=== PATIENT | male | born 1980 | race Caucasian/White ===

== ENCOUNTER 2018-09-20 14:00 | Emergency (ER) | payer MEDICAID, SELFPAY ==
[~2018-09-20] VITALS: Ht 160 cm; Wt 63.6 kg
[~2018-09-20 14:00] MED LIST: NOCURR
[2018-09-20] MEDS ORDERED: LIDOCAINE 1% 10 ML VIAL INJ ONE (18:00)
[2018-09-20] MEDS ORDERED: BACITRACIN 0.9 GM PACKET OINTMENT TP ONE (19:15)
[2018-09-20 19:48] VITALS: BP 132/77
== END 2018-09-20 20:15 | disposition home or self-care (01) ==
LOC: EMS 14:01
DX: S01.81XA Laceration without foreign body of other part of head, initial encounter (principal); S01.111A Laceration without foreign body of right eyelid and periocular area, initial encounter; F12.90 Cannabis use, unspecified, uncomplicated; F15.90 Other stimulant use, unspecified, uncomplicated; F17.210 Nicotine dependence, cigarettes, uncomplicated; W01.119A Fall on same level from slipping, tripping and stumbling with subsequent striking against unspecified sharp object, initial encounter; Y93.89 Activity, other specified; Y92.89 Other specified places as the place of occurrence of the external cause; Y99.8 Other external cause status
CPT/HCPCS: 12014; 36415; 70450; 72125; 99284; G0480; J3490; 12013

== ENCOUNTER 2018-10-13 20:23 | Emergency (ER) | payer MEDICAID ==
[~2018-10-13] VITALS: Ht 160 cm; Wt 59.1 kg
[2018-10-13 21:29] VITALS: BP 123/68
== END 2018-10-13 21:57 | disposition home or self-care (01) ==
LOC: EMS 20:24
DX: S01.111D Laceration without foreign body of right eyelid and periocular area, subsequent encounter (principal); S01.81XD Laceration without foreign body of other part of head, subsequent encounter; R03.0 Elevated blood-pressure reading, without diagnosis of hypertension; F15.90 Other stimulant use, unspecified, uncomplicated; F12.90 Cannabis use, unspecified, uncomplicated; F17.210 Nicotine dependence, cigarettes, uncomplicated; Z48.02 Encounter for removal of sutures; X58.XXXD Exposure to other specified factors, subsequent encounter

== ENCOUNTER 2022-01-14 05:04 | Inpatient (IN) | payer MEDICAID ==
[~2022-01-14] VITALS: Ht 162.6 cm; Wt 59.6 kg
[2022-01-14 06:06] LABS: BASOPHILS % (AUTO) 0.5 % (0.0-2.0); EOSINOPHILS % (AUTO) 1.6 % (1.0-6.0); HEMATOCRIT 37.9 % (41-53); HEMOGLOBIN 12.7 g/dL (13.5-17.5); LYMPHOCYTES # (AUTO) 1.6 K/uL (1.0-4.8); LYMPHOCYTES % (AUTO) 12.9 % (22.0-44.0); MEAN CORPUSCULAR HEMOGLOBIN 30.8 pg (26.0-34.0); MEAN CORPUSCULAR HGB CONC 33.4 G/dL (31.0-37.0); MEAN CORPUSCULAR VOLUME 92 fL (80-100); MONOCYTES % (AUTO) 7.6 % (2.0-9.0); NEUTROPHILS # (AUTO) 9.6 K/uL (1.8-7.7); NEUTROPHILS % (AUTO) 77.4 % (40.0-70.0); PLATELET COUNT (AUTO) 247 K/uL (150-450); RED BLOOD CELL COUNT(AUTO) 4.11 MIL/uL (4.50-5.90); RED CELL DISTRIBUTION WIDTH 13.2 % (11.5-14.5)
[2022-01-14 06:14] LABS: PROTHROMBIN TIME 10.9 SEC (9.4-11.6)
[2022-01-14] MEDS ORDERED: VANCOMYCIN HCL 1.25 GM in DEXTROSE 5%-WATER 250 ML IV ONE (06:15)
[2022-01-14] MEDS ORDERED: CefTRIAXone 1 GM/DEXTROSE 50 ML IV ONE (06:15)
[2022-01-14 06:25] LABS: ALANINE AMINOTRANSFERASE 17 U/L (12-78); ALBUMIN 3.5 g/dL (3.4-5.0); ALKALINE PHOSPHATASE 73 U/L (46-116); ANION GAP 9 mmol/L (8-16); ASPARTATE AMINOTRANSFERASE 18 U/L (15-37); BILIRUBIN,TOTAL 0.4 mg/dL (0.1-1.0); CALCIUM, TOTAL 8.4 mg/dL (8.8-10.5); CARBON DIOXIDE 24 mmol/L (22-29); CHLORIDE 102 mmol/L (98-107); CREATININE 0.65 mg/dL (0.60-1.30); GLUCOSE,RANDOM 114 mg/dL (70-110); POTASSIUM 3.1 mmol/L (3.5-5.1); SODIUM SERUM 135 mmol/L (136-145); TOTAL PROTEIN, SERUM 7.6 g/dL (6.4-8.2); UREA NITROGEN, BLOOD 11 mg/dL (7-18)
[2022-01-14 06:28] LABS: GLOMERULAR FILTR. RATE CALC > 60 mL/min (>60)
[2022-01-14] MEDS ORDERED: PERTUSS(ACELL),DIPH,TET VAC/PF 0.5 ML SYRINGE IM. ONE (06:30)
[2022-01-14] MEDS ORDERED: MORPHINE SULFATE 2 MG/ML SYRINGE IVP ONE (06:30)
[2022-01-14 06:40] LABS: C-REACTIVE PROTEIN QUANT 6.94 mg/dL (0.00-0.30)
[2022-01-14] MEDS ORDERED: SODIUM CHLORIDE 0.9% 1,000 ML IV ONE (06:45)
[2022-01-14 07:23] LABS: COVID AG,FIA SOURCE NASOPHARYNGEAL
[2022-01-14] MEDS ORDERED: ONDANSETRON HCL 4 MG/2 ML VIAL IVP PRN ×2 (08:15→23:00)
[2022-01-14] MEDS ORDERED: ACETAMINOPHEN 325 MG TABLET PO PRN ×2 (08:15→23:00)
[2022-01-14] MEDS ORDERED: 0.9% SODIUM CHLORIDE 10 ML SYRINGE IVP PRN (08:15)
[2022-01-14] MEDS ORDERED: GADOTERATE MEGLUMINE 10 MMOL/20 ML VIAL IVP ONE (08:38)
[2022-01-14 11:53] VITALS: BP 122/87
[2022-01-14 15:27] VITALS: BP 116/75
[2022-01-14] MEDS ORDERED: POTASSIUM CHLORIDE 20 MEQ ER TABLET PO PRN (16:00)
[2022-01-14] MEDS ORDERED: POTASSIUM CHL 10 MEQ/WATER 50 ML IV PRN (16:00)
[2022-01-14 20:07] VITALS: BP 117/75
[2022-01-14] MEDS ORDERED: HYDROCODONE/ACETAMINOPHEN 5-325 MG TABLET PO PRN ×3 (20:45→23:00)
[2022-01-14] MEDS ORDERED: MAGNESIUM HYDROXIDE SUSPENSION 30 ML UDCUP PO PRN (23:00)
[2022-01-14] MEDS ORDERED: ZOLPIDEM TARTRATE 5 MG TABLET PO PRN (23:00)
[2022-01-14] MEDS ORDERED: BISACODYL 10 MG RECTAL RECTAL SUPPOSITORY PR PRN (23:00)
[2022-01-14] MEDS ORDERED: ALBUTEROL SULFATE 2.5 MG/0.5 ML NEB SOLUTION NEB PRN (23:00)
[2022-01-14] MEDS ORDERED: IPRATROPIUM BROMIDE 0.5 MG/2.5 ML NEB SOLUTION NEB PRN (23:00)
[2022-01-14] MEDS ORDERED: MORPHINE SULFATE 2 MG/ML SYRINGE IVP PRN (23:00)
[2022-01-14] MEDS: HEPARIN SODIUM,PORCINE 5,000 UNITS/ML VIAL SQ SCH (23:57)
[2022-01-15] MEDS ORDERED: VANCOMYCIN HCL 1.25 GM in DEXTROSE 5%-WATER 250 ML IV SCH ×2
[2022-01-15 00:48] VITALS: BP 117/75
[2022-01-15 04:16] VITALS: BP 126/77
[2022-01-15] MEDS ORDERED: SODIUM CHLORIDE 0.9% 500 ML IV ONE (04:51)
[2022-01-15] MEDS ORDERED: RINGERS SOLUTION,LACTATED 1,000 ML IV ONE (06:00)
[2022-01-15] MEDS ORDERED: VANCOMYCIN HCL 1 GM/VIAL ONE (06:56)
[2022-01-15] MEDS ORDERED: LIDOCAINE 1%/EPI 1:200,000/PF 30 ML VIAL ONE (06:57)
[2022-01-15] MEDS ORDERED: SODIUM CL IRRIG SOLN BAG 3,000 ML IRRIG ONE (06:57)
[2022-01-15] MEDS ORDERED: BUPIVACAINE HCL/PF 0.25% 30 ML VIAL ONE (06:58)
[2022-01-15] MEDS ORDERED: SODIUM CHLORIDE 0.9% 0 ML ONE (06:59)
[2022-01-15 07:20] LABS: BASOPHILS % (AUTO) 0.5 % (0.0-2.0); EOSINOPHILS % (AUTO) 1.7 % (1.0-6.0); HEMATOCRIT 40.7 % (41-53); HEMOGLOBIN 13.2 g/dL (13.5-17.5); LYMPHOCYTES # (AUTO) 1.8 K/uL (1.0-4.8); LYMPHOCYTES % (AUTO) 14.3 % (22.0-44.0); MEAN CORPUSCULAR HEMOGLOBIN 30.9 pg (26.0-34.0); MEAN CORPUSCULAR HGB CONC 32.5 G/dL (31.0-37.0); MEAN CORPUSCULAR VOLUME 95 fL (80-100); MONOCYTES % (AUTO) 7.7 % (2.0-9.0); NEUTROPHILS # (AUTO) 9.4 K/uL (1.8-7.7); NEUTROPHILS % (AUTO) 75.8 % (40.0-70.0); PLATELET COUNT (AUTO) 253 K/uL (150-450); RED BLOOD CELL COUNT(AUTO) 4.29 MIL/uL (4.50-5.90); RED CELL DISTRIBUTION WIDTH 13.1 % (11.5-14.5)
[2022-01-15 07:37] LABS: ALANINE AMINOTRANSFERASE 17 U/L (12-78); ALBUMIN 3.4 g/dL (3.4-5.0); ALKALINE PHOSPHATASE 73 U/L (46-116); ANION GAP 5 mmol/L (8-16); ASPARTATE AMINOTRANSFERASE 17 U/L (15-37); BILIRUBIN,TOTAL 0.3 mg/dL (0.1-1.0); CARBON DIOXIDE 28 mmol/L (22-29); CHLORIDE 101 mmol/L (98-107); GLUCOSE,RANDOM 99 mg/dL (70-110); POTASSIUM 4.5 mmol/L (3.5-5.1); SODIUM SERUM 134 mmol/L (136-145); TOTAL PROTEIN, SERUM 7.7 g/dL (6.4-8.2); UREA NITROGEN, BLOOD 9 mg/dL (7-18)
[2022-01-15 07:38] LABS: GLOMERULAR FILTR. RATE CALC > 60 mL/min (>60)
[2022-01-15] MEDS ORDERED: MEPERIDINE-PF 25 MG/ML VIAL IVP PRN (08:00)
[2022-01-15] MEDS ORDERED: FentaNYL CITRATE PF 100 MCG/2 ML VIAL IVP PRN (08:00)
[2022-01-15] MEDS: HEPARIN SODIUM,PORCINE 5,000 UNITS/ML VIAL SQ SCH ×3 (08:00→23:25)
[2022-01-15] MEDS: OXYGEN THERAPY IH SCH ×2 (08:00→20:18)
[2022-01-15] MEDS ORDERED: HYDROmorphone 2 MG/ML VIAL IVP PRN (08:00)
[2022-01-15] MEDS ORDERED: BACITRACIN 28 GM OINTMENT TP ONE (08:08)
[2022-01-15] MEDS: VANCOMYCIN 1GM/WATER(PEG/NADA) 200 ML IV SCH ×3 (08:23→23:25)
[2022-01-15] MEDS: CefTRIAXone 1 GM/DEXTROSE 50 ML IV SCH (08:23)
[2022-01-15] MEDS: DOCUSATE SODIUM 100 MG CAPSULE PO SCH ×2 (09:11→20:18)
[2022-01-15] MEDS: PANTOPRAZOLE SODIUM 40 MG/VIAL IVP SCH (09:11)
[2022-01-15 10:16] VITALS: BP 135/60
[2022-01-15] MEDS ORDERED: MIDAZOLAM HCL 2 MG/2 ML VIAL IVP ONE (12:00)
[2022-01-15] MEDS ORDERED: DEXAMETHASONE SOD PHOS 4 MG/ML VIAL IVP ONE (12:00)
[2022-01-15] MEDS ORDERED: FentaNYL CITRATE PF 100 MCG/2 ML VIAL IVP ONE (12:00)
[2022-01-15] MEDS ORDERED: METOPROLOL TARTRATE 5 MG/5 ML VIAL IVP ONE (12:00)
[2022-01-15] MEDS ORDERED: SUCCINYLCHOLINE CHLORIDE 20 MG/ML 10 ML VIAL IVP ONE (12:00)
[2022-01-15] MEDS ORDERED: KETOROLAC TROMETHAMINE 60 MG/2 ML VIAL IM ONE (12:00)
[2022-01-15] MEDS ORDERED: LIDOCAINE/PF 2% 5 ML VIAL IM ONE (12:00)
[2022-01-15] MEDS ORDERED: PROPOFOL 1% 20 ML VIAL IVP ONE (12:00)
[2022-01-15] MEDS: NICOTINE 21 MG/24 HOUR PATCH TD SCH (14:45)
[2022-01-15 16:29] VITALS: BP 107/69
[2022-01-15 19:45] VITALS: BP 117/72
[2022-01-16 04:25] VITALS: BP 128/84
[2022-01-16 07:17] LABS: ANION GAP 10 mmol/L (8-16); CARBON DIOXIDE 22 mmol/L (22-29); CHLORIDE 105 mmol/L (98-107); CREATININE 1.16 mg/dL (0.60-1.30); GLUCOSE,RANDOM 113 mg/dL (70-110); POTASSIUM 3.8 mmol/L (3.5-5.1); SODIUM SERUM 137 mmol/L (136-145); UREA NITROGEN, BLOOD 25 mg/dL (7-18)
[2022-01-16 07:18] LABS: CALCIUM, TOTAL 8.9 mg/dL (8.8-10.5); GLOMERULAR FILTR. RATE CALC > 60 mL/min (>60); VANCOMYCIN,RANDOM 28.9 mcg/mL (25.0-50.0)
[2022-01-16] MEDS: OXYGEN THERAPY IH SCH ×2 (08:00→20:00)
[2022-01-16] MEDS: NICOTINE 21 MG/24 HOUR PATCH TD SCH (08:02)
[2022-01-16] MEDS: DOCUSATE SODIUM 100 MG CAPSULE PO SCH ×2 (08:02→21:26)
[2022-01-16] MEDS: CefTRIAXone 1 GM/DEXTROSE 50 ML IV SCH (08:02)
[2022-01-16] MEDS: MULTIVITAMINS WITH MINERALS, THERAPEUTIC TABLET PO SCH (08:02)
[2022-01-16] MEDS: PANTOPRAZOLE SODIUM 40 MG/VIAL IVP SCH (08:03)
[2022-01-16] MEDS: HEPARIN SODIUM,PORCINE 5,000 UNITS/ML VIAL SQ SCH ×2 (08:03→16:30)
[2022-01-16 08:19] VITALS: BP 130/75
[2022-01-16] MEDS: VANCOMYCIN HCL 750 MG in DEXTROSE 5%-WATER 250 ML IV SCH ×3 (08:47→23:49)
[2022-01-16 15:00] VITALS: BP 123/74
[2022-01-16 20:00] VITALS: BP 150/82
[2022-01-17] MEDS: HEPARIN SODIUM,PORCINE 5,000 UNITS/ML VIAL SQ SCH ×4 (01:32→23:29)
[2022-01-17 04:03] VITALS: BP 149/98
[2022-01-17 07:51] LABS: ANION GAP 9 mmol/L (8-16); CALCIUM, TOTAL 9.6 mg/dL (8.8-10.5); CARBON DIOXIDE 26 mmol/L (22-29); CHLORIDE 102 mmol/L (98-107); CREATININE 0.92 mg/dL (0.60-1.30); GLUCOSE,RANDOM 94 mg/dL (70-110); POTASSIUM 3.8 mmol/L (3.5-5.1); SODIUM SERUM 137 mmol/L (136-145); UREA NITROGEN, BLOOD 19 mg/dL (7-18)
[2022-01-17 07:54] LABS: GLOMERULAR FILTR. RATE CALC > 60 mL/min (>60)
[2022-01-17] MEDS: OXYGEN THERAPY IH SCH ×2 (08:00→20:09)
[2022-01-17 08:13] VITALS: BP 120/91
[2022-01-17] MEDS: CefTRIAXone 1 GM/DEXTROSE 50 ML IV SCH (08:44)
[2022-01-17] MEDS: DOCUSATE SODIUM 100 MG CAPSULE PO SCH (08:44)
[2022-01-17] MEDS: BACITRACIN 28 GM OINTMENT TP SCH (08:44)
[2022-01-17] MEDS: VANCOMYCIN HCL 750 MG in DEXTROSE 5%-WATER 250 ML IV SCH ×3 (08:44→23:29)
[2022-01-17] MEDS: NICOTINE 21 MG/24 HOUR PATCH TD SCH (08:44)
[2022-01-17] MEDS: MULTIVITAMINS WITH MINERALS, THERAPEUTIC TABLET PO SCH (08:44)
[2022-01-17] MEDS: PANTOPRAZOLE SODIUM 40 MG/VIAL IVP SCH (08:45)
[2022-01-17 10:14] LABS: BASOPHILS % (AUTO) 0.9 % (0.0-2.0); HEMATOCRIT 41.6 % (41-53); HEMOGLOBIN 13.6 g/dL (13.5-17.5); LYMPHOCYTES # (AUTO) 1.4 K/uL (1.0-4.8); LYMPHOCYTES % (AUTO) 11.6 % (22.0-44.0); MEAN CORPUSCULAR HEMOGLOBIN 30.7 pg (26.0-34.0); MEAN CORPUSCULAR HGB CONC 32.6 G/dL (31.0-37.0); MEAN CORPUSCULAR VOLUME 94 fL (80-100); MONOCYTES # (AUTO) 1.3 K/uL (0.1-1.0); MONOCYTES % (AUTO) 10.6 % (2.0-9.0); NEUTROPHILS # (AUTO) 9.3 K/uL (1.8-7.7); NEUTROPHILS % (AUTO) 75.9 % (40.0-70.0); PLATELET COUNT (AUTO) 296 K/uL (150-450); RED BLOOD CELL COUNT(AUTO) 4.43 MIL/uL (4.50-5.90); RED CELL DISTRIBUTION WIDTH 13.4 % (11.5-14.5)
[2022-01-17 10:20] LABS: ALANINE AMINOTRANSFERASE 22 U/L (12-78); ALBUMIN 3.3 g/dL (3.4-5.0); ALKALINE PHOSPHATASE 80 U/L (46-116); ASPARTATE AMINOTRANSFERASE 26 U/L (15-37); BILIRUBIN,TOTAL 0.3 mg/dL (0.1-1.0); TOTAL PROTEIN, SERUM 7.7 g/dL (6.4-8.2)
[2022-01-17 19:20] VITALS: BP 104/68
[2022-01-18 04:15] VITALS: BP 137/71
[2022-01-18 06:53] LABS: ANION GAP 8 mmol/L (8-16); CARBON DIOXIDE 28 mmol/L (22-29); CHLORIDE 99 mmol/L (98-107); CREATININE 1.13 mg/dL (0.60-1.30); GLUCOSE,RANDOM 121 mg/dL (70-110); POTASSIUM 4.1 mmol/L (3.5-5.1); SODIUM SERUM 135 mmol/L (136-145); UREA NITROGEN, BLOOD 20 mg/dL (7-18); VANCOMYCIN,RANDOM 25.7 mcg/mL (25.0-50.0)
[2022-01-18 06:58] LABS: GLOMERULAR FILTR. RATE CALC > 60 mL/min (>60)
[2022-01-18 07:17] VITALS: BP 117/78
[2022-01-18] MEDS ORDERED: VANCOMYCIN HCL 1 GM in DEXTROSE 5%-WATER 250 ML IV SCH (08:00)
[2022-01-18] MEDS ORDERED: VANCOMYCIN HCL 1 GM/D5% WATER 200 ML IV SCH (08:00)
[2022-01-18] MEDS: OXYGEN THERAPY IH SCH (08:00)
[2022-01-18] MEDS ORDERED: VANCOMYCIN 1GM/WATER(PEG/NADA) 200 ML IV SCH (08:00)
[2022-01-18] MEDS: CefTRIAXone 1 GM/DEXTROSE 50 ML IV SCH (08:46)
[2022-01-18] MEDS: MULTIVITAMINS WITH MINERALS, THERAPEUTIC TABLET PO SCH (08:47)
[2022-01-18] MEDS: HEPARIN SODIUM,PORCINE 5,000 UNITS/ML VIAL SQ SCH (08:47)
[2022-01-18] MEDS: PANTOPRAZOLE SODIUM 40 MG/VIAL IVP SCH (08:48)
[2022-01-18] MEDS: NICOTINE 21 MG/24 HOUR PATCH TD SCH (08:57)
[2022-01-18] MEDS: BACITRACIN 28 GM OINTMENT TP SCH (09:23)
[2022-01-18] MEDS ORDERED: DOXYCYCLINE PO (12:39)
== END 2022-01-18 14:35 | disposition home or self-care (01) | DRG 951 ==
LOC: EMS 05:06 → 5S 10:20 → 6S 01-15 01:42
PROVIDERS: ADMIT Hospitalist; ATTEND Hospitalist
PROC: 0LB70ZZ Excision of Right Hand Tendon, Open Approach (ICD-10-PCS; principal; 2022-01-15 07:15)
DX: L02.511 Cutaneous abscess of right hand (principal); F15.90 Other stimulant use, unspecified, uncomplicated; M65.141 Other infective (teno)synovitis, right hand; Z20.822 Contact with and (suspected) exposure to COVID-19; L03.011 Cellulitis of right finger; Z56.0 Unemployment, unspecified; Z72.0 Tobacco use
CPT/HCPCS: 73220; 80048; 80053; 80202; 83605; 84132; 85025; 85610; 85651; 85730; 86140; 87015; 87040; 87070; 87081; 87101; 87205; 87206; 90715; 97165; 97535; 99285; C9113; G0378; J0330; J0696; J1100; J1644; J1885; J2250; J2270; J2704; J3010; J3370; J3490; J7030; J7040; J7060; J7120; Q9967; 36415-L1; 36415-TC; Z7610

== ENCOUNTER 2022-10-23 15:40 | Emergency (ER) | payer MEDICAID ==
[~2022-10-23] VITALS: Ht 165.1 cm; Wt 60.5 kg
[~2022-10-23 15:40] MED LIST changes: +DOXYCYCLINE PO; -NOCURR
[2022-10-23 16:02] VITALS: BP 138/87; PULSE 81; RESP 19; TEMP 98.1
[2022-10-23] MEDS ORDERED: RABIES IMMUNE GLOBULIN/PF 300 UNITS/ML 5 ML VIAL IM. ONE (16:15)
[2022-10-23] MEDS ORDERED: PERTUSS(ACELL),DIPH,TET VAC/PF 0.5 ML SYRINGE IM. ONE (16:15)
[2022-10-23] MEDS ORDERED: RABIES VACCINE, HUMAN DIPLOID/PF 2.5 UNITS/ML VIAL IM. ONE (16:15)
[2022-10-23] MEDS ORDERED: RABIES IMMUNE GLOBULIN/PF 300 UNIT/ML VIAL IM. ONE (16:15)
[2022-10-23] MEDS ORDERED: LIDOCAINE 1% 10 ML VIAL ONE (16:52)
[2022-10-23] MEDS ORDERED: AMOX1TAB16 PO (17:24)
== END 2022-10-23 17:49 | disposition home or self-care (01) ==
LOC: EMS 15:41
DX: S51.811A Laceration without foreign body of right forearm, initial encounter (principal); F17.210 Nicotine dependence, cigarettes, uncomplicated; F10.90 Alcohol use, unspecified, uncomplicated; F12.90 Cannabis use, unspecified, uncomplicated; F15.90 Other stimulant use, unspecified, uncomplicated; W54.0XXA Bitten by dog, initial encounter; Y93.89 Activity, other specified; Y92.89 Other specified places as the place of occurrence of the external cause; Y99.8 Other external cause status
CPT/HCPCS: 99284; 90675; 90375; 90715; 90471; 12001; J3490; Q9967